=== PATIENT | female | born 1965 | race Caucasian/White ===

== ENCOUNTER 2017-05-31 19:57 | Emergency (ER) | payer MEDICARE | END 2017-05-31 21:00 | disposition home or self-care (01) | LOC: D.ER 19:57 | DX: S61.212A Laceration without foreign body of right middle finger without damage to nail, initial encounter (principal); W26.0XXA Contact with knife, initial encounter; Y93.G3 Activity, cooking and baking; Y92.010 Kitchen of single-family (private) house as the place of occurrence of the external cause; M32.9 Systemic lupus erythematosus, unspecified ==

== ENCOUNTER 2018-08-26 07:29 | Observation (INO) | payer OTHER ==
[~2018-08-26] VITALS: Ht 162.6 cm; Wt 59.1 kg
--- NOTE | ~2018-08-26 | MORECARE ---
CASE MANAGEMENT DISCHARGE SUMMARY PATIENT: AMBER HUERTA FE UNIT: [id number] ADM DATE: 08/26/18 AGE: 53 : 61 SEX: F ROOM/BED: D.E14 AUTHOR: NANO,DOC PHYSICIAN: REFERRING PHYSICIAN: LIYAH BEVERLY MD DATE OF SERVICE: 09/06/18 Discharge Plan Patient Name: AMBER HUERTA Facility: [facility]:[place] : 1965 Planned Disposition: Home Anticipated Discharge Date: 08/28/18 Discharge Date: 08/26/2018 Expected LOS: 2 Initial Reviewer: [email or web address] Initial Review Date: 08/26/2018 Generated: 09/06/18 3:16 pm DCP- Discharge Planning Updated by [email or web address]: Coco Roy on 08/26/18 12:[address] Patient Name: AMBER HUERTA Admission Status: ER Accout number: [id number] Admission Date: 08-26-2018 : 1965 Admission Diagnosis: Attending: LIYAH BEVERLY Current LOS: 1 Anticipated DC Date: 08-28-2018 Planned Disposition: Home Primary Insurance: [employer] Discharge Planning Comments: CM met with patient to complete initial dc planning assessment. CM educated patient on the CM role and verbal consent given by patient to complete assessment. Patient lives at home alone independently. At discharge patient plans to return home alone and feels this is a safe discharge. Patient reports she has a glucometer but does not check her sugar very often. Patient denied known discharge needs at this time. CM will continue to follow and will assist as needed with dc plans/needs. See below for more assessment information. Bumboater: Coco Roy RN, [facility] DCPIA - Discharge Planning Initial Assessment Updated by [email or web address]: Coco Roy on 08/26/18 11:55 am * Is the patient Alert and Oriented? Yes * How many steps to enter\exit or inside your home? None * PCP Dr. JANSEN - has appointment but has not seen in office yet. * [facility]acy [facility] or [facility] * Preadmission Environment Home Alone * ADLs Independent * Equipment Glucometer * Other Equipment Does not check her sugar as she is supposed to. * List name and contact numbers for known caregivers / representatives who currently or will assist patient after discharge: Thea esposito - [phone] * Verbal permission to speak to the caregivers and representatives has been obtained from the patient. Yes * Community resources currently utilized None * Additional services required to return to the preadmission environment? No * Can the patient safely return to the preadmission environment? Yes * Has this patient been hospitalized within the prior 30 days at any hospital? No Last DP export: 08/26/18 12:19 p Patient Name: AMBER HUERTA Page 31434 at 1416 All edits/amendments must be made on the electronic document DICTATION DATE: 09/06/181414 DIRECTOR OF SPECIAL SERVICES: DIANA 09/06/181414 RPT#: [id number] DC DATE:08/26/18 STATUS: DIS IN [facility] [address] [place] [address] END OF REPORT
--- NOTE | ~2018-08-26 | MORECARE ---
CASE MANAGEMENT DISCHARGE SUMMARY PATIENT: AMBER HUERTA FE UNIT: [id number] ADM DATE: 08/26/18 AGE: 53 : 61 SEX: F ROOM/BED: D.E14 AUTHOR: NISHANT MCGILL PHYSICIAN: REFERRING PHYSICIAN: LIYAH BEVERLY MD DATE OF SERVICE: 08/26/18 Discharge Plan Patient Name: AMBER HUERTA [facility] [facility] 1965 Planned Disposition: Home Anticipated Discharge Date: 08/28/18 Discharge Date: Expected LOS: 2 Initial Reviewer: [email or web address] Initial Review Date: 08/26/2018 Generated: 08/26/18 1:00 pm DCPIA - Discharge Planning Initial Assessment Updated by [email or web address]: Coco Roy on 08/26/18 11:55 am * Is the patient Alert and Oriented? Yes * How many steps to enter\exit or inside your home? None * PCP Dr. JANSEN - has appointment but has not seen in office yet. * Pharmacy [facility] the [facility] or [facility] * Preadmission Environment Home Alone * ADLs Independent * Equipment Glucometer * Other Equipment Does not check her sugar as she is supposed to. * List name and contact numbers for known caregivers / representatives who currently or will assist patient after discharge: Thea Winter vaibhav - [phone] * Verbal permission to speak to the caregivers and representatives has been obtained from the patient. Yes * Community resources currently utilized None * Additional services required to return to the preadmission environment? No * Can the patient safely return to the preadmission environment? Yes * Has this patient been hospitalized within the prior 30 days at any hospital? No Patient Name: AMBER HUERTA Page 27655 at 1201 All edits/amendments must be made on the electronic document DICTATION DATE: 08/26/18 1200 AIRLINE MANAGER: DIANA 08/26/18 1200 RPT#: [id number] DC DATE: STATUS: ADM IN [facility] [address] [place] [address] END OF REPORT
--- NOTE | ~2018-08-26 | MORECARE ---
CASE MANAGEMENT DISCHARGE SUMMARY PATIENT: AMBER HUERTA FE UNIT: [id number] ADM DATE: 08/26/18 AGE: 53 : 61 SEX: F ROOM/BED: D.E14 AUTHOR: NANO,DOC PHYSICIAN: REFERRING PHYSICIAN: LIYAH BEVERLY MD DATE OF SERVICE: 08/26/18 Discharge Plan Patient Name: AMBER HUERTA Facility: [facility]:[place] : 1965 Planned Disposition: Home Anticipated Discharge Date: 08/28/18 Discharge Date: Expected LOS: 2 Initial Reviewer: [email or web address] Initial Review Date: 08/26/2018 Generated: 08/26/18 1:19 pm DCP- Discharge Planning Updated by [email or web address]: Coco Roy on 08/26/18 11:[address] Patient Name: AMBER HUERTA Admission Status: ER Accout number: [id number] Admission Date: 08-26-2018 : 1965 Admission Diagnosis: Attending: LIYAH BEVERLY Current LOS: 1 Anticipated DC Date: 08-28-2018 Planned Disposition: Home Primary Insurance: [employer] Discharge Planning Comments: CM met with patient to complete initial dc planning assessment. CM educated patient on the CM role and verbal consent given by patient to complete assessment. Patient lives at home alone independently. At discharge patient plans to return home alone and feels this is a safe discharge. Patient reports she has a glucometer but does not check her sugar very often. Patient denied known discharge needs at this time. CM will continue to follow and will assist as needed with dc plans/needs. See below for more assessment information. Freight Booker: Coco Roy RN, [facility] DCPIA - Discharge Planning Initial Assessment Updated by [email or web address]: Coco Roy on 08/26/18 11:55 am * Is the patient Alert and Oriented? Yes * How many steps to enter\exit or inside your home? None * PCP Dr. JANSEN - has appointment but has not seen in office yet. * Pharmacy [facility] the [facility] or [facility] * Preadmission Environment Home Alone * ADLs Independent * Equipment Glucometer * Other Equipment Does not check her sugar as she is supposed to. * List name and contact numbers for known caregivers / representatives who currently or will assist patient after discharge: Thea Chapel Rea esposito - [phone] * Verbal permission to speak to the caregivers and representatives has been obtained from the patient. Yes * Community resources currently utilized None * Additional services required to return to the preadmission environment? No * Can the patient safely return to the preadmission environment? Yes * Has this patient been hospitalized within the prior 30 days at any hospital? No Last DP export: 08/26/18 11:00 a Patient Name: AMBER HUERTA Page 64770 at 1219 All edits/amendments must be made on the electronic document DICTATION DATE: 08/26/181217 BENEFITS REPRESENTATIVE: DIANA 08/26/181217 RPT#: [id number] DC DATE: STATUS: ADM IN [facility] [address] [place] [address] END OF REPORT
[2018-08-26 07:36] VITALS: Ht 162.6 cm; Wt 59.1 kg
[2018-08-26 09:27] LABS: BASOPHILS 0.2 % (0-2); EOSINOPHILS 0.5 % (0-7); HEMATOCRIT 37.1 % (36.0-48.0); HEMOGLOBIN 13.3 g/dL (12-16); IMMATURE GRANULOCYTES 0.3 % (0-5); LYMPHOCYTES 17.4 % (15-50); MCH 33.6 pg (26.0-34.0); MCHC 35.8 g/dL (31.0-37.0); MCV 93.7 fL (80.0-100.0); MEAN PLATELET VOLUME 11.6 fL (7.4-10.4); MONOCYTES 9.1 % (2-11); NEUTROPHILS 72.5 % (40-80); PLATELET COUNT 235 10x3/uL (130-400); RBC 3.96 10x6/uL (4.00-5.40); RDW 11.9 % (11.5-14.5); WBC 17.6 10x3/uL (4.8-10.8)
[2018-08-26 09:42] LABS: ALBUMIN 3.1 g/dL (3.4-5.0); ALKALINE PHOSPHATASE 81 U/L (46-116); ALT (SGPT) 38 U/L (10-68); BILIRUBIN - TOTAL 0.71 mg/dL (0.2-1.3); CALC OSMOLALITY 271 mosm/kg (275-300); CALCIUM 8.5 mg/dL (8.5-10.1); CARBON DIOXIDE 21.6 mmol/L (21.0-32.0); CHLORIDE - SERUM 99 mmol/L (98-107); CREATININE - SERUM 0.6 mg/dL (0.6-1.3); GLUCOSE 219 mg/dL (74-106); POTASSIUM - SERUM 3.6 mmol/L (3.5-5.1); PROTEIN - SERUM 7.2 g/dL (6.4-8.2); SODIUM 133 mmol/L (136-145); UREA NITROGEN 9 mg/dL (7-18); eGFR NON AFRICAN AMERICAN > 90 mL/min (90-120)
[2018-08-26 10:18] LABS: APPEARANCE CLEAR (CLEAR); BILIRUBIN NEGATIVE (NEGATIVE); COLOR YELLOW (YELLOW); GLUCOSE 250 mg/dL (NEGATIVE); KETONE MODERATE mg/dL (NEGATIVE); NITRITE NEGATIVE (NEGATIVE); PROTEIN TRACE mg/dL (NEGATIVE); SPECIFIC GRAVITY 1.015 (1.005-1.020)
[2018-08-26 10:21] LABS: BACTERIA FEW /hpf (NONE SEEN); EPITHELIAL CELLS 0-5 /hpf (0-5); MUCUS >1+ /lpf (NONE SEEN); RED CELLS - URINE 0-5 /hpf (0-5); WHITE CELLS - URINE 0-5 /hpf (0-5)
[2018-08-26 11:48] VITALS: BP 123/82
[2018-08-27] MEDS ORDERED: NORCO 7.5/325 T1 TA1 PO (20:35)
[2018-08-27] MEDS ORDERED: VENTOLIN HFA18 GM INH (20:35)
[2018-08-27] MEDS ORDERED: LEVAQUIN750 MG PO (20:35)
== END 2018-08-26 13:32 | disposition home or self-care (01) ==
LOC: D.ER 07:29 → D.EDHOLD 10:36 → D.ER 10:36 → D.EDHOLD 10:36 → OBSVTIME 10:36 → D.EDHOLD 13:32
PROVIDERS: Family Medicine
DX: N39.0 Urinary tract infection, site not specified (principal); J18.9 Pneumonia, unspecified organism; F17.210 Nicotine dependence, cigarettes, uncomplicated; J01.90 Acute sinusitis, unspecified

== ENCOUNTER 2018-08-27 18:44 | Emergency (ER) | payer OTHER ==
[~2018-08-27] VITALS: Ht 162.6 cm; Wt 61.2 kg
[2018-08-27 19:19] VITALS: Ht 162.6 cm; Wt 61.2 kg
[2018-08-27] MEDS ORDERED: LEVAQUIN750 MG PO (20:35)
[2018-08-27] MEDS ORDERED: VENTOLIN HFA18 GM INH (20:35)
[2018-08-27] MEDS ORDERED: NORCO 7.5/325 T1 TA1 PO (20:35)
[2018-08-27 21:06] VITALS: BP 144/76
== END 2018-08-27 21:06 | disposition home or self-care (01) ==
LOC: D.ER 18:44
DX: J18.9 Pneumonia, unspecified organism (principal); J45.909 Unspecified asthma, uncomplicated; R09.89 Other specified symptoms and signs involving the circulatory and respiratory systems; F17.200 Nicotine dependence, unspecified, uncomplicated

== ENCOUNTER 2021-03-31 14:04 | Inpatient (IN) | payer MEDICARE ==
[~2021-03-31] VITALS: Ht 162.6 cm; Wt 54.4 kg
[~2021-03-31 14:04] MED LIST: LEVAQUIN750 MG PO; NORCO 7.5/325 T1 TA1 PO; VENTOLIN HFA18 GM INH
[2021-03-31 14:51] LABS: BILIRUBIN NEGATIVE (NEGATIVE); KETONE NEGATIVE (NEGATIVE); NITRITE NEGATIVE (NEGATIVE); UROBILINOGEN NORMAL mg/dL (< 2)
--- NOTE | 2021-03-31 15:03 | NUR ---
CALLED CARE, SPOKE WITH CECILIA BENTLEY. INFORMED OF NEED FOR MH SCREENING/ASSESSMENT
[2021-03-31 15:04] LABS: UDS - AMPHET POSITIVE QUAL (NEGATIVE); UDS - BARB NEGATIVE QUAL (NEGATIVE); UDS - BENZO NEGATIVE QUAL (NEGATIVE); UDS - COCAINE NEGATIVE QUAL (NEGATIVE); UDS - OPIATE NEGATIVE QUAL (NEGATIVE); UDS - PCP NEGATIVE QUAL (NEGATIVE); UDS - THC POSITIVE QUAL (NEGATIVE)
[2021-03-31 15:15] LABS: BASOPHILS 0.9 % (0-2); HEMATOCRIT 40.7 % (36.0-48.0); HEMOGLOBIN 13.7 g/dL (12-16); LYMPHOCYTES 30.6 % (15-50); MCH 32.3 pg (26.0-34.0); MCHC 33.7 g/dL (31.0-37.0); MCV 95.9 fL (80.0-100.0); MEAN PLATELET VOLUME 8.1 fL (7.4-10.4); MONOCYTES 6.9 % (2-11); NEUTROPHILS 59.6 % (40-80); RBC 4.25 10x6/uL (4.00-5.40); RDW 12.3 % (11.5-14.5); WBC 10.6 10x3/uL (4.8-10.8)
[2021-03-31 15:26] LABS: APTT 25.3 SECONDS (22.8-39.4); INR 1.08 (0.85-1.17)
[2021-03-31 15:30] LABS: PLATELET COUNT 372 10x3/uL (130-400)
[2021-03-31 15:34] LABS: CALC OSMOLALITY 282 mosm/kg (275-300); CALCIUM 8.7 mg/dL (8.5-10.1); CARBON DIOXIDE 26.7 mmol/L (21.0-32.0); CHLORIDE - SERUM 104 mmol/L (98-107); CREATININE - SERUM 0.7 mg/dL (0.6-1.3); GLUCOSE 186 mg/dL (74-106); POTASSIUM - SERUM 3.9 mmol/L (3.5-5.1); SODIUM 140 mmol/L (136-145); UREA NITROGEN 9 mg/dL (7-18); eGFR NON AFRICAN AMERICAN > 90 mL/min (90-120)
[2021-03-31 15:47] LABS: ALBUMIN 3.4 g/dL (3.4-5.0); ALKALINE PHOSPHATASE 105 U/L (30-120); ALT (SGPT) 44 U/L (10-68); BILIRUBIN - TOTAL 0.22 mg/dL (0.2-1.3); CKMB 1.8 U/L (0.0-3.6); CREATINE KINASE 110 UL (21-215); MAGNESIUM - SERUM 2.1 mg/dL (1.8-2.4); PROTEIN - SERUM 7.4 g/dL (6.4-8.2)
[2021-03-31 15:50] LABS: TROPONIN-I < 0.017 ng/mL (0.000-0.060)
--- NOTE | 2021-03-31 16:05 | NUR ---
Per observation and assessment, Patient scores a low risk score for suicide. She says she was more self harming by cutting her wrist that actually killing herself. She present s to ED with a " sarabjit bite" and then after 15 minutes she states "that's not a sarabjit bite,,,I need to tell you...it's missing drug". Spoke with Dr. Margarito espinosa charge nurse and to Dr. Malin and patient needs inpt. or outpt therapy, counseling, and medication adjustments. She states she is "not suicidal".Resources for suicide and for hot line given to patient and she states "thank you".
[2021-03-31 21:23] VITALS: BP 152/86
--- NOTE | 2021-03-31 21:43 | NUR ---
NS 1000CC STARTED 2006 FINISHED 2106. 1000CC INFUSED.
[2021-03-31] MEDS ORDERED: COREG6.25 MG PO (22:16)
[2021-03-31] MEDS ORDERED: PLAVIX75 MG PO (22:16)
[2021-03-31] MEDS ORDERED: ASPIRIN81 MG PO (22:16)
[2021-03-31] MEDS ORDERED: GLUCOPHAGE1000 MG PO (22:16)
[2021-03-31 23:21] VITALS: BP 157/87; BMI 20.6
--- NOTE | 2021-04-01 07:00 | NUR ---
MORNING ROUNDS. IN BED WITH EYES CLOSED, BREATHING EVEN AND NON LABORED. NO S/S OF DISTRESS NOTED AT THIS TIME. BED IN LOWEST POSITION, BED RAILS X2, CALL LIGHT WITHIN REACH. WILL CONTINUE POC.
[2021-04-01 08:00] VITALS: BP 134/78
--- NOTE | 2021-04-01 08:21 | NUR ---
AT LEAST 5 FAILED ATTEMPTS TO START IV ON PATIENT. WILL NOTIFY SURGERY.
[2021-04-01 09:19] LABS: BASOPHILS 0.6 % (0-2); EOSINOPHILS 1.8 % (0-7); HEMATOCRIT 40.2 % (36.0-48.0); HEMOGLOBIN 13.2 g/dL (12-16); LYMPHOCYTES 25.7 % (15-50); MCH 31.4 pg (26.0-34.0); MCHC 32.8 g/dL (31.0-37.0); MCV 95.6 fL (80.0-100.0); MONOCYTES 5.9 % (2-11); PLATELET COUNT 257 10x3/uL (130-400); RDW 12.3 % (11.5-14.5); WBC 12.8 10x3/uL (4.8-10.8)
--- NOTE | 2021-04-01 09:32 | NUR ---
AAOX4 UPON ENTERING. VISITOR AT BEDSIDE. ADMINSITERED IM B1 AND LIBRIUM. RESTING COMFORTABLY. DENIES ANY NEEDS AT THIS TIME. WILL CONITNUE POC.
[2021-04-01 09:38] LABS: ALBUMIN 3.2 g/dL (3.4-5.0); ALKALINE PHOSPHATASE 97 U/L (30-120); ALT (SGPT) 41 U/L (10-68); BILIRUBIN - TOTAL 0.38 mg/dL (0.2-1.3); CALC OSMOLALITY 276 mosm/kg (275-300); CALCIUM 8.2 mg/dL (8.5-10.1); CARBON DIOXIDE 27.3 mmol/L (21.0-32.0); CHLORIDE - SERUM 103 mmol/L (98-107); CREATININE - SERUM 0.6 mg/dL (0.6-1.3); GLUCOSE 151 mg/dL (74-106); MAGNESIUM - SERUM 2.1 mg/dL (1.8-2.4); POTASSIUM - SERUM 4.5 mmol/L (3.5-5.1); PROTEIN - SERUM 6.7 g/dL (6.4-8.2); SODIUM 138 mmol/L (136-145); UREA NITROGEN 8 mg/dL (7-18); eGFR NON AFRICAN AMERICAN > 90 mL/min (90-120)
--- NOTE | 2021-04-01 10:24 | NUR ---
DAUGHTER IN ROOM, COMPLAINING ABOUT MULTIPLE STICKS FOR BLOOD DRAW THIS MORNING. MESSAGE SENT TO ABOUT MULTIPLE UNSUCESSFUL IV ATTEMPTS.
[2021-04-01 11:01] LABS: INR 1.14 (0.85-1.17); PROTIME 13.5 SECONDS (11.6-15.0)
[2021-04-01 12:11] VITALS: BP 136/80
--- NOTE | 2021-04-01 12:21 | NUR ---
REQUESTING PAIN MEDICATION, EXPLAINED SHE IS NPO SO NO PO MEDS AND HAS NO IV ACCESS AND WILL NOT ALLOW US TO KEEP TRYING SO SHE IS UNABLE TO HAVE MEDICATION AT THIS TIME. VERBALIZES UNDERSTANDING.
--- NOTE | 2021-04-01 13:50 | NUR ---
PRN MORPHINE FOR 9/10 PAIN. ANESTHESIA IN ROOM ASKING QUESTIONS, GETTING READY FOR I&D. DENIES FURTHER NEEDS. WILL CONTINUE POC.
--- NOTE | 2021-04-01 14:51 | NUR ---
I have reviewed this patient and I concur with the Shift Assessment completed by the Licensed Practical Nurse today this shift.
[2021-04-01 15:32] VITALS: BP 134/77
[2021-04-01 15:34] VITALS: Ht 162.6 cm; Wt 54.4 kg
--- NOTE | 2021-04-01 15:59 | NUR ---
ADMINISTERED PRE-OP MEDICATION AT THIS TIME. TOLERATED WELL. STARTED IV ABX. RESTING COMFORTABLY IN BED. FAMILY AT BEDSIDE. DENIES ANY NEEDS AT THIS TIME. BED IN LOWEST POSITION, BED RAILS X2, CALL LIGHT WITHIN REACH. WILL CONTINUE POC.
--- NOTE | 2021-04-01 17:20 | NUR ---
HUNG IV ABX, TOLERATING WELL. RESTING WITH EYES CLOSED. NO S/S OF DISTRESS NOTED AT THIS TIME. WILL CONTINUE POC.
[2021-04-01 20:00] VITALS: BP 135/81
--- NOTE | 2021-04-01 20:22 | NUR ---
PATIENT'S OTHER DAUGHTER AMBER BLEVINS' PHONE NUMBER [phone].
[2021-04-02] VITALS: BP 128/75
[2021-04-02 04:00] VITALS: BP 131/80
[2021-04-02 06:32] LABS: BASOPHILS 1.1 % (0-2); EOSINOPHILS 2.9 % (0-7); HEMATOCRIT 37.2 % (36.0-48.0); HEMOGLOBIN 12.4 g/dL (12-16); MCH 31.6 pg (26.0-34.0); MCHC 33.3 g/dL (31.0-37.0); MCV 94.7 fL (80.0-100.0); MEAN PLATELET VOLUME 7.7 fL (7.4-10.4); MONOCYTES 5.9 % (2-11); NEUTROPHILS 59.1 % (40-80); RBC 3.93 10x6/uL (4.00-5.40); RDW 12.2 % (11.5-14.5)
[2021-04-02 06:48] LABS: PLATELET COUNT 335 10x3/uL (130-400)
[2021-04-02 06:50] LABS: ALBUMIN 2.6 g/dL (3.4-5.0); ALKALINE PHOSPHATASE 83 U/L (30-120); ALT (SGPT) 37 U/L (10-68); BILIRUBIN - TOTAL 0.31 mg/dL (0.2-1.3); CALC OSMOLALITY 281 mosm/kg (275-300); CALCIUM 7.9 mg/dL (8.5-10.1); CARBON DIOXIDE 28.9 mmol/L (21.0-32.0); CHLORIDE - SERUM 105 mmol/L (98-107); CREATININE - SERUM 0.8 mg/dL (0.6-1.3); GLUCOSE 133 mg/dL (74-106); MAGNESIUM - SERUM 2.2 mg/dL (1.8-2.4); POTASSIUM - SERUM 4.5 mmol/L (3.5-5.1); PROTEIN - SERUM 6.2 g/dL (6.4-8.2); SODIUM 140 mmol/L (136-145); UREA NITROGEN 15 mg/dL (7-18); eGFR NON AFRICAN AMERICAN 78 mL/min (90-120)
[2021-04-02 08:45] VITALS: BP 162/98
[2021-04-02 12:00] VITALS: BP 122/59
--- NOTE | 2021-04-02 12:49 | NUR ---
PRN PAIN MEDS AND ANXIETY MEDS GIVEN AT THIS TIME
--- NOTE | 2021-04-02 13:52 | NUR ---
WOUND CARE PROVIDED TO PATIENT'S LEFT ARM AT THIS TIME, COVERED WITH GAUZE AND WRAPPED WITH DILIP WRAP.
--- NOTE | 2021-04-02 15:10 | NUR ---
NURSE GIVES PATIENT PRN ATIVAN AND SCHEDULED LIBRIUM. PATIENT IS CRYING WHILE SITTING UP IN BED, TELLS NURSE/ MD SHE FEELS LIKE SHE IS HAVING WITHDRAWLS. MD CHANGES ORDER FREQUENCY FOR ATIVAN.
--- NOTE | 2021-04-02 15:23 | NUR ---
NURSE PLACES PATIENT ON TELE. PATIENT IS RELAXED NOW, AND SLEEPING PEACEFULLY IN BED. NAD NOTED.
[2021-04-02 20:00] VITALS: BP 123/72
[2021-04-03 04:00] VITALS: BP 124/70
[2021-04-03 06:15] LABS: BASOPHILS 0.8 % (0-2); EOSINOPHILS 3.4 % (0-7); HEMATOCRIT 34.1 % (36.0-48.0); HEMOGLOBIN 11.5 g/dL (12-16); LYMPHOCYTES 28.4 % (15-50); MCH 31.8 pg (26.0-34.0); MCHC 33.7 g/dL (31.0-37.0); MCV 94.4 fL (80.0-100.0); MEAN PLATELET VOLUME 8.1 fL (7.4-10.4); MONOCYTES 7.2 % (2-11); NEUTROPHILS 60.2 % (40-80); PLATELET COUNT 299 10x3/uL (130-400); RBC 3.61 10x6/uL (4.00-5.40); RDW 12.2 % (11.5-14.5)
[2021-04-03 06:19] LABS: INR 1.04 (0.85-1.17); PROTIME 12.6 SECONDS (11.6-15.0)
[2021-04-03 06:49] LABS: ALBUMIN 2.5 g/dL (3.4-5.0); ALKALINE PHOSPHATASE 80 U/L (30-120); ALT (SGPT) 36 U/L (10-68); CALC OSMOLALITY 282 mosm/kg (275-300); CARBON DIOXIDE 27.7 mmol/L (21.0-32.0); CHLORIDE - SERUM 106 mmol/L (98-107); CREATININE - SERUM 0.8 mg/dL (0.6-1.3); GLUCOSE 195 mg/dL (74-106); MAGNESIUM - SERUM 2.1 mg/dL (1.8-2.4); POTASSIUM - SERUM 4.4 mmol/L (3.5-5.1); SODIUM 139 mmol/L (136-145); UREA NITROGEN 13 mg/dL (7-18); VANCOMYCIN - TROUGH 25.9 ug/mL (10.0-20.0); eGFR NON AFRICAN AMERICAN 78 mL/min (90-120)
[2021-04-03 08:57] VITALS: BP 158/80
[2021-04-03 12:22] VITALS: BP 129/78
--- NOTE | 2021-04-03 14:21 | NUR ---
I have reviewed this patient and I concur with the Shift Assessment completed by the Licensed Practical Nurse today this shift.
--- NOTE | 2021-04-03 14:45 | NUR ---
LAB ATTEMPTING TO DRAW VANC TROUGH, UNABLE TO OBTAIN LABS, PATIENT WAS STUCK NUMEROUS TIMES AND UNSUCCESSFUL EACH TIME, PATIENT FAMILY THEN SAID TO STOP NO MORE STICKING PATIENT. UNABLE TO OBTAIN VANC TROUGH WILL CONTACT DOCTOR
[2021-04-03 17:08] VITALS: BP 139/76
--- NOTE | 2021-04-03 19:30 | NUR ---
PT IN BED, EYES CLOSED, RESP EVEN AND UNLABORED, NO DISTRESS NOTED, CL IN REACH, SR UP X 2.
[2021-04-03 20:00] VITALS: BP 133/69
--- NOTE | 2021-04-03 21:58 | NUR ---
PT REFUSING MEDICATION PT WANTING TO GO SMOKE, PT TOLD THIS IS A SMOKE FREE CAMPUS, PT FRIEND IN ROOM, PT COMBATIVE TO PT FRIEND, PT INSISTANT ON GOING TO SMOKE OR GOING AMA. PT GIVEN 2 MG ATIVAN PER ORDER AT THIS TIME.
--- NOTE | 2021-04-03 22:32 | NUR ---
DR. MANCINI NOTIFIED AND SITTER ORDERED. SITTER AT BEDSIDE. NOTIFIED CHARGE NURSE AND ATTENDING IN REGARDS TO ASSESSMENT FINDINGS. RESOURCES GIVEN TO PT AND SAFETY PLAN INITIATED.
--- NOTE | 2021-04-03 22:47 | NUR ---
PTS BAG WENT THROUGH PER SECURITY, PT BELONGINGS TAKEN HOME PER KARISSA BUSBY AT THIS TIME, PT EVALUATED PER SUICIDE SCREEN, PT HAS MENTAL HEALTH TECH AT DOOR FOR SUICIDE WATCH. DR MANCINI CONSULTED AT THIS TIME.
[2021-04-04 03:53] VITALS: BP 154/79
--- NOTE | 2021-04-04 05:11 | NUR ---
I have reviewed this patient and I concur with the Shift Assessment completed by the Licensed Practical Nurse today this shift.
[2021-04-04 06:16] LABS: INR 1.07 (0.85-1.17); PROTIME 12.9 SECONDS (11.6-15.0)
[2021-04-04 06:18] LABS: EOSINOPHILS 3.3 % (0-7); HEMATOCRIT 35.2 % (36.0-48.0); HEMOGLOBIN 11.8 g/dL (12-16); LYMPHOCYTES 27.9 % (15-50); MCH 31.9 pg (26.0-34.0); MCHC 33.7 g/dL (31.0-37.0); MCV 94.7 fL (80.0-100.0); MEAN PLATELET VOLUME 8.6 fL (7.4-10.4); MONOCYTES 5.6 % (2-11); NEUTROPHILS 62.2 % (40-80); PLATELET COUNT 269 10x3/uL (130-400); RBC 3.71 10x6/uL (4.00-5.40); RDW 12.1 % (11.5-14.5); WBC 8.5 10x3/uL (4.8-10.8)
[2021-04-04 06:24] LABS: ALBUMIN 2.6 g/dL (3.4-5.0); ALKALINE PHOSPHATASE 73 U/L (30-120); ALT (SGPT) 44 U/L (10-68); BILIRUBIN - TOTAL 0.25 mg/dL (0.2-1.3); CALCIUM 8.1 mg/dL (8.5-10.1); CHLORIDE - SERUM 108 mmol/L (98-107); CREATININE - SERUM 0.6 mg/dL (0.6-1.3); MAGNESIUM - SERUM 2.1 mg/dL (1.8-2.4); POTASSIUM - SERUM 3.9 mmol/L (3.5-5.1); PROTEIN - SERUM 6.2 g/dL (6.4-8.2); SODIUM 142 mmol/L (136-145); UREA NITROGEN 11 mg/dL (7-18); VANCOMYCIN - TROUGH 13.8 ug/mL (10.0-20.0); eGFR NON AFRICAN AMERICAN > 90 mL/min (90-120)
[2021-04-04 06:25] LABS: CALC OSMOLALITY 283 mosm/kg (275-300); GLUCOSE 134 mg/dL (74-106)
[2021-04-04 10:13] VITALS: BP 148/88
[2021-04-04 13:10] VITALS: BP 146/87
--- NOTE | 2021-04-04 13:47 | NUR ---
unable to do [place] suicide assessment due to pt refusing to wake up and answer questions. sitter at bedside for suicide risk.
--- NOTE | 2021-04-04 15:50 | MORECARE ---
CASE MANAGEMENT DISCHARGE SUMMARY PATIENT: AMBER HUERTA UNIT: [id number] ADM DATE: 03/31/21 AGE: 55 : 61 SEX: F ROOM/BED: D.2236 AUTHOR: NANO,DOC PHYSICIAN: REFERRING PHYSICIAN: JOSIANE ARGUETA MD DATE OF SERVICE: 04/04/21 Case Management Discharge Planning Summary COMMENTS ENTERED DATE: 04/04/21 15:42 CT COMMENT TYPE: Discharge Planning REVIEWER: Sheryl Bañuelos CM MET WITH PATIENT AND HER DAUGHTER TYRONE TODAY. THEY WOULD LIKE ALCOHOL REHAB FOR HER. I HAVE CALLED [facility] IN [place] AND THEY STATED PATIENT WOULD HAVE TO BE MEDICALLY STABLE BEFORE THEY WOULD CONSIDER TAKING HER. THEY TRANSFERRED ME TO THEIR PSYCH ADMITS DEPARTMENT AND SHE STATES THEY WOULDN'T EVEN LOOK AT HER RECORDS UNTIL SHE IS MEDICALLY STABLE. I GAVE THE DAUGHTER A LIST OF ALCOHOL REHABS IN [place] AND THEY CAN GET STARTED ON GETTING HER INTO A REHAB FACILITY [facility] SHE IS MEDICALLY STABLE. CM TO FOLLOW AND ASSIST NEEDED. I PLAN TO CONTACT [facility] TOMORROW. DCP REVIEW SUMMARY ANTICIPATED D/C DATE: EXPECTED LOS : CASE STATUS: DCP Initiated INITIAL REVIEW: 03/31/2021 INITIAL REVIEWER: Sheryl Bañuelos FINAL DISCHARGE DISPOSITION: : FINAL REVIEWER: FINAL REVIEW DATE: DCP Focus Questions & Answers DCP Screen QUESTION: ANSWER High Risk Factors: : Poor health literacy DCP Evaluation QUESTION: ANSWER Patient's ability to cope with chronic illness : d. No chronic illness Would patient like to participate in any Care Coordination programs (if applicable): : Not applicable Mental health screen: : No mental health history DCP Re-evaluation QUESTION: ANSWER Would patient like to participate in any Care Coordination programs (if applicable): : Not applicable PATIENT: AMBER HUERTA ENCOUNTER: [id number] MEDICAL RECORD#: [id number] ADMISSION DATE: 03/31/2021 DISCHARGE DATE: ATTENDING MD: : AGE: 55 MARITAL STATUS: W DC PLAN ID: [id number] FACILITY: [facility] PRINTED ON: 04/04/21 15:50 CT All edits/amendments must be made on the electronic document DICTATION DATE: 04/04/211549 DIRECTOR OF PHYSICAL SECURITY: DIANA 04/04/211549 RPT#: [id number] DC DATE: STATUS: ADM IN [facility] [address] [facility] [place] [address] END OF REPORT
--- NOTE | 2021-04-04 19:00 | NUR ---
PT VERY AGITATED AT THIS TIME, PT GIVEN 2 MG ATIVAN PER MD ORDER,
--- NOTE | 2021-04-04 19:30 | NUR ---
PT IN BED, EYES CLOSED, RESP EVEN AND UNLABORED, NO DISTRESS NOTED, CL IN REACH, SR UP X 2.
[2021-04-04 20:00] VITALS: BP 132/75
[2021-04-05] VITALS: BP 142/75
--- NOTE | 2021-04-05 04:55 | NUR ---
I have reviewed this patient and I concur with the Shift Assessment completed by the Licensed Practical Nurse today this shift.
--- NOTE | 2021-04-05 05:45 | NUR ---
PIV LOST, ATTEMPTED 8 TIMES TO REPLACE PIV, JOSE CHAVARRIA APN NOTIFED AT THIS TIME. VASCULAR ACCESS CONSULTED.
--- NOTE | 2021-04-05 09:24 | EC ---
PATIENT:AMBER HUERTA DATE OF SERVICE: 03/31/21 SEX: F MEDICAL RECORD: [id number] DATE OF : [birth year] LOCATION:[facility] AGE OF PATIENT: 55 ADMISSION DATE: 03/31/21 REFERRING PHYSICIAN: INTERPRETING PHYSICIAN: JOSIANE CONNELLY MD ECHOCARDIOGRAM REPORT ECHO CHARGES 4 ECHO COMPLETE Date: 04/01/21 CLINICAL DIAGNOSIS: IV DRUG USE ECHOCARDIOGRAPHIC MEASUREMENTS (adult normal given) AC root (d.<3.7cm) 2.9 cm LV Septum d (<1.2 cm> 0.7 cm Valve Excursion 1.3 cm LV Septum (systole) 1.1 cm Left Atria (s.<4.0cm> 3.5 cm LVPW d(<1.2cm) 0.8 cm RV (d.<2.3cm) 2.2 cm LVPW (sytole) 1.3 cm LV diastole(<5.6CM) 5.8 cm MV E-F(>70mm/sec) cm LV systole 4.5 cm LVOT Diameter 1.8 cm MV exc.(>10mm) 0.9 cm Est.ejection fraction (50-75%) % DOPPLER: LVIT cm/sec A 91 cm/sec E 79 cm/sec LA cm/sec RVSP 21 mmHg LVOT 74 cm/sec AOP1/2T m/s Asc. Ao 124 cm/sec RVOT 58 cm/sec RA cm/sec PA 72 cm/sec AV Gradient Peak 6.2 mmHg AV Mean 3.6 mmHg AV Area 1.5 cm MV Gradient Peak 4.7 mmHg MV Mean 2.8 mmHg MV Area cm COMMENTS: Automotive Manager: Grace R[place] Medical Laboratory Technician: 3 Dr. Ward TAPE# Pericardial Effusion N DATE OF SERVICE: Adequate 2D, color flow imaging, spectral Doppler, and M-Mode. FINDINGS: No LVH. LV internal dimension is normal. Wall motion is normal. EF is greater than or equal to 55%. The aortic valve is tricuspid. No evidence of stenosis by Doppler interrogation. Left atrium appears normal. Mitral valve shows no prolapse. Trace MR. Right side is grossly normal. Trace TR. No evidence of endocarditis in all 4 cardiac valves. ECHOCARDIOGRAM REPORT [id number] AMBER HUERTA TRANSINT:[id number] Voice Confirmation ID: [id number] DOCUMENT ID: [id number] JOSIANE CONNELLY MD at 0924 CC: [id number] DICTATION DATE: 04/02/21 1439 MERCHANT BANKER: 04/02/21 1735 ADM IN [facility] [address] [place] [address]
--- NOTE | 2021-04-05 09:56 | NUR ---
PATIENT DENIES SUICIDE IDEATIONS AT THIS TIME. STATED, " I WANT TO GO HOME AND LIVE TO BE A THOUSAND YEARS OLD."
[2021-04-05 11:09] LABS: ALBUMIN 2.9 g/dL (3.4-5.0); ALKALINE PHOSPHATASE 84 U/L (30-120); ALT (SGPT) 52 U/L (10-68); BILIRUBIN - TOTAL 0.35 mg/dL (0.2-1.3); CALCIUM 8.4 mg/dL (8.5-10.1); CARBON DIOXIDE 27.2 mmol/L (21.0-32.0); CHLORIDE - SERUM 105 mmol/L (98-107); POTASSIUM - SERUM 3.8 mmol/L (3.5-5.1); PROTEIN - SERUM 6.8 g/dL (6.4-8.2); SODIUM 142 mmol/L (136-145); UREA NITROGEN 9 mg/dL (7-18); eGFR NON AFRICAN AMERICAN 78 mL/min (90-120)
[2021-04-05 11:10] LABS: CALC OSMOLALITY 289 mosm/kg (275-300); CREATININE - SERUM 0.8 mg/dL (0.6-1.3); GLUCOSE 245 mg/dL (74-106)
[2021-04-05 11:24] LABS: BASOPHILS 0.6 % (0-2); EOSINOPHILS 2.3 % (0-7); HEMATOCRIT 37.8 % (36.0-48.0); HEMOGLOBIN 12.6 g/dL (12-16); LYMPHOCYTES 20.1 % (15-50); MCH 31.9 pg (26.0-34.0); MCHC 33.4 g/dL (31.0-37.0); MCV 95.6 fL (80.0-100.0); MEAN PLATELET VOLUME 8.5 fL (7.4-10.4); MONOCYTES 2.7 % (2-11); NEUTROPHILS 74.3 % (40-80); PLATELET COUNT 298 10x3/uL (130-400); RBC 3.95 10x6/uL (4.00-5.40); RDW 12.2 % (11.5-14.5); WBC 8.8 10x3/uL (4.8-10.8)
[2021-04-05 12:32] LABS: INR 1.23 (0.85-1.17); PROTIME 14.3 SECONDS (11.6-15.0)
[2021-04-05 12:51] VITALS: BP 162/57
--- NOTE | 2021-04-05 13:13 | NUR ---
Nutrition follow-up: Diet order: consistent CHO Pt sleeping at time of RD visit; sitter at door Labs reviewed; glucose under mostly poor control Wt: 120# Will continue to provide food choices with selective menus and honor food preferences within diet restrictions. RDN will reassess pts progress toward nutrition goals in 3-5 days.
--- NOTE | 2021-04-05 14:36 | MORECARE ---
CASE MANAGEMENT DISCHARGE SUMMARY PATIENT: AMBER HUERTA UNIT: [id number] ADM DATE: 03/31/21 AGE: 55 : 61 SEX: F ROOM/BED: D.2236 AUTHOR: NANO,DOC PHYSICIAN: REFERRING PHYSICIAN: JOSIANE ARGUETA MD DATE OF SERVICE: 04/05/21 Case Management Discharge Planning Summary COMMENTS ENTERED DATE: 04/05/21 14:24 CT COMMENT TYPE: Discharge Planning REVIEWER: Sheryl Bañuelos CM CALLED [facility] IN [place] FOR PSYCH PLACEMENT AT [phone]. FAXED TO [phone]. WAITING CALL BACK TODAY IF THEY WILL ACCEPT. ASHANTI VILLAGOMEZ HEAD AUTOMATIC SAWYER WITH PSYCH HERE TO SEE PATIENT. SITTER IS PRESENT. CM TO FOLLOW AND ASSIST NEEDED. ENTERED DATE: 04/04/21 15:42 CT COMMENT TYPE: Discharge Planning REVIEWER: Sheryl Bañuelos CM MET WITH PATIENT AND HER DAUGHTER TYRONE TODAY. THEY WOULD LIKE ALCOHOL REHAB FOR HER. I HAVE CALLED [facility] IN [place] AND THEY STATED PATIENT WOULD HAVE TO BE MEDICALLY STABLE BEFORE THEY WOULD CONSIDER TAKING HER. THEY TRANSFERRED ME TO THEIR PSYCH ADMITS DEPARTMENT AND SHE STATES THEY WOULDN'T EVEN LOOK AT HER RECORDS UNTIL SHE IS MEDICALLY STABLE. I GAVE THE DAUGHTER A LIST OF ALCOHOL REHABS IN [place] AND THEY CAN GET STARTED ON GETTING HER INTO A REHAB FACILITY FO [facility] SHE IS MEDICALLY STABLE. CM TO FOLLOW AND ASSIST NEEDED. I PLAN TO CONTACT [facility] TOMORROW. DCP REVIEW SUMMARY ANTICIPATED D/C DATE: EXPECTED LOS : CASE STATUS: DCP Initiated INITIAL REVIEW: 03/31/2021 INITIAL REVIEWER: Sheryl Bañuelos FINAL DISCHARGE DISPOSITION: : FINAL REVIEWER: FINAL REVIEW DATE: DCP Focus Questions & Answers DCP Screen QUESTION: ANSWER High Risk Factors: : Poor health literacy DCP Evaluation QUESTION: ANSWER Patient's ability to cope with chronic illness : d. No chronic illness Would patient like to participate in any Care Coordination programs (if applicable): : Not applicable Mental health screen: : No mental health history DCP Re-evaluation QUESTION: ANSWER Would patient like to participate in any Care Coordination programs (if applicable): : Not applicable PATIENT: AMBER HUERTA ENCOUNTER: [id number] MEDICAL RECORD#: [id number] ADMISSION DATE: 03/31/2021 DISCHARGE DATE: ATTENDING MD: LUIS E: AGE: 55 MARITAL STATUS: W DC PLAN ID: [id number] FACILITY: [facility] PRINTED ON: 04/05/21 14:36 CT All edits/amendments must be made on the electronic document DICTATION DATE: 04/05/211435 SPORTS BROADCASTER: DIANA 04/05/21 143 RPT#: [id number] DC DATE: STATUS: ADM IN [facility] [address] [place] [address] END OF REPORT
--- NOTE | 2021-04-05 16:52 | NUR ---
AFTER REVIEWING PATIENT'S CASE WITH SUPERVISOR WET END AND TREATMENT TEAM, IT WAS DETERMINED THAT A SITTER WAS NO LONGER NEEDED. IF PATIENT HAS A GOOD NIGHT, PATIENT WILL LIKELY BE DISCHARGED TOMORROW FOR OUTPATIENT THERAPY.
--- NOTE | 2021-04-05 17:01 | NUR ---
AFTER SUICIDAL SCREEN DONE AND COLABORATION WITH FLORES TORO RN AND ASHANTI VILLAGOMEZ APN. ORDER GIVEN FOR DISCONTINUING ONE ON ONE SITTING DUE TO NONE SUICIDAL RISK. RESTING WITH EYES CLOSED WITH RESP EVEN AND UNLABORED
[2021-04-05 17:03] VITALS: BP 105/61
--- NOTE | 2021-04-05 23:45 | NUR ---
ASSESSED AT THE BEGINNING OF THE SHIFT. PT IS ALERT AND ORIENTED, BUT A LITTLE LETHARGIC. SHE HAS BEEN QUIET IN BED SINCE SHIFT'S BEGINNING. MEDS WERE TAKEN ORDERED AND SHE REQUESTED A PAIN PILL FOR HER ARM. 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 SHE HAS NO IV AND HAS CHANGED HER MEDS TO PO. THERE IS NO TELEMETRY BECAUSE SHE HAS REFUSED TO KEEP IT ON FOR THE LAST 2 DAYS.
--- NOTE | 2021-04-06 05:01 | NUR ---
HAS BEEN RESTING QUIET WITH NO DISTRESS OR COMPLAINTS.
[2021-04-06 06:42] LABS: INR 1.07 (0.85-1.17); PROTIME 12.9 SECONDS (11.6-15.0)
[2021-04-06 06:50] LABS: BASOPHILS 0.8 % (0-2); HEMATOCRIT 33.8 % (36.0-48.0); HEMOGLOBIN 11.4 g/dL (12-16); LYMPHOCYTES 34.1 % (15-50); MCH 32.2 pg (26.0-34.0); MCHC 33.8 g/dL (31.0-37.0); MCV 95.2 fL (80.0-100.0); MEAN PLATELET VOLUME 8.5 fL (7.4-10.4); MONOCYTES 9.5 % (2-11); NEUTROPHILS 51.6 % (40-80); PLATELET COUNT 296 10x3/uL (130-400); RBC 3.55 10x6/uL (4.00-5.40); RDW 12.5 % (11.5-14.5); WBC 7.2 10x3/uL (4.8-10.8)
[2021-04-06 07:19] LABS: ALBUMIN 3.3 g/dL (3.4-5.0); ALKALINE PHOSPHATASE 75 U/L (30-120); ALT (SGPT) 45 U/L (10-68); BILIRUBIN - TOTAL 0.19 mg/dL (0.2-1.3); CALCIUM 8.6 mg/dL (8.5-10.1); CARBON DIOXIDE 24.2 mmol/L (21.0-32.0); CHLORIDE - SERUM 107 mmol/L (98-107); CREATININE - SERUM 0.7 mg/dL (0.6-1.3); POTASSIUM - SERUM 4.2 mmol/L (3.5-5.1); PROTEIN - SERUM 6.2 g/dL (6.4-8.2); SODIUM 142 mmol/L (136-145); eGFR NON AFRICAN AMERICAN > 90 mL/min (90-120)
[2021-04-06 07:20] LABS: CALC OSMOLALITY 286 mosm/kg (275-300); GLUCOSE 130 mg/dL (74-106); UREA NITROGEN 18 mg/dL (7-18)
[2021-04-06 09:14] VITALS: BP 121/71
[2021-04-06 13:37] VITALS: BP 147/83
[2021-04-06 17:21] VITALS: BP 131/80
--- NOTE | 2021-04-07 02:28 | NUR ---
I have reviewed this patient and I concur with the Shift Assessment completed by the Licensed Practical Nurse today this shift.
[2021-04-07 07:22] LABS: HEMATOCRIT 38.1 % (36.0-48.0); HEMOGLOBIN 12.6 g/dL (12-16); LYMPHOCYTE ABS# 2.97 10x3/uL (1.18-3.74); MCH 31.5 pg (26.0-34.0); MCHC 33.1 g/dL (31.0-37.0); MCV 95.3 fL (80.0-100.0); NEUTROPHIL ABS# 4.98 10x3/uL (1.56-6.13); PLATELET COUNT 341 10x3/uL (130-400)
[2021-04-07 07:26] LABS: WBC 9.1 10x3/uL (4.8-10.8)
[2021-04-07 07:42] LABS: INR 1.01 (0.85-1.17); PROTIME 12.3 SECONDS (11.6-15.0)
[2021-04-07 07:59] LABS: EOSINOPHILS 1 % (0-7); LYMPHOCYTES 33 % (15-50); NEUTROPHILS 66 % (40-80); PLATELET ESTIMATE NORMAL
[2021-04-07 08:00] LABS: ALBUMIN 3.2 g/dL (3.4-5.0); ALKALINE PHOSPHATASE 95 U/L (30-120); BILIRUBIN - TOTAL 0.25 mg/dL (0.2-1.3); CALC OSMOLALITY 277 mosm/kg (275-300); CALCIUM 8.9 mg/dL (8.5-10.1); CARBON DIOXIDE 27.1 mmol/L (21.0-32.0); CHLORIDE - SERUM 104 mmol/L (98-107); CREATININE - SERUM 0.7 mg/dL (0.6-1.3); GLUCOSE 137 mg/dL (74-106); POTASSIUM - SERUM 4.4 mmol/L (3.5-5.1); PROTEIN - SERUM 7.3 g/dL (6.4-8.2); SODIUM 137 mmol/L (136-145); UREA NITROGEN 19 mg/dL (7-18); eGFR NON AFRICAN AMERICAN > 90 mL/min (90-120)
[2021-04-07 08:01] LABS: ALT (SGPT) 57 U/L (10-68)
--- NOTE | 2021-04-07 09:00 | NUR ---
DRESSING CHANGED TO LEFT FOREARM WITH SANTYL APPLIED AND COVED WITH 4X4 AND SECURED WITH TAPE.
[2021-04-07 09:05] VITALS: BP 132/69
[2021-04-07 12:16] VITALS: BP 108/58
[2021-04-07 12:43] VITALS: BP 105/70
[2021-04-07 18:10] VITALS: BP 145/79
--- NOTE | 2021-04-07 18:20 | NUR ---
PATINET FRIEND HERE WITH PATIENT. PATIENT DENIES ANY PAIN OR DISCOMFORT.
--- NOTE | 2021-04-07 18:30 | NUR ---
PT NOT IN ROOM WAS SEEN IN HALLWAY WITH BAG AND CELL PHONE WITH FRIEND. AUTOMATED PROCESS OPERATOR AND SECURITY NOTIFIED.
--- NOTE | 2021-04-07 18:43 | NUR ---
SECURITY UNABLE TO FIND PATIENT WITH INTERMEDIATE SCHOOL TEACHER AND DAUGHTER NOTIFIED OF PATIENT POSSIBLE LEAVING AMA. INSTRUCTED WOULD CALL IF CAME BACK TO UNIT.
--- NOTE | 2021-04-07 19:00 | MORECARE ---
CASE MANAGEMENT DISCHARGE SUMMARY PATIENT: AMBER HUERTA UNIT: [id number] ADM DATE: 03/31/21 AGE: 55 : 61 SEX: F ROOM/BED: D.2236 AUTHOR: NANO,DOC PHYSICIAN: REFERRING PHYSICIAN: JOSIANE ARGUETA MD DATE OF SERVICE: 04/07/21 Case Management Discharge Planning Summary COMMENTS ENTERED DATE: 04/05/21 14:24 CT COMMENT TYPE: Discharge Planning REVIEWER: Sheryl Bañuelos CM CALLED [facility] IN [place] FOR PSYCH PLACEMENT AT [phone]. FAXED TO [phone]. WAITING CALL BACK TODAY IF THEY WILL ACCEPT. ASHANTI VILLAGOMEZ ELECTRICIAN CRANE MAINTENANCE WITH PSYCH HERE TO SEE PATIENT. SITTER IS PRESENT. CM TO FOLLOW AND ASSIST NEEDED. ENTERED DATE: 04/04/21 15:42 CT COMMENT TYPE: Discharge Planning REVIEWER: Sheryl Bañuelos CM MET WITH PATIENT AND HER DAUGHTER TYRONE TODAY. THEY WOULD LIKE ALCOHOL REHAB FOR HER. I HAVE CALLED [facility] IN [place] AND THEY STATED PATIENT WOULD HAVE TO BE MEDICALLY STABLE BEFORE THEY WOULD CONSIDER TAKING HER. THEY TRANSFERRED ME TO THEIR PSYCH ADMITS DEPARTMENT AND SHE STATES THEY WOULDN'T EVEN LOOK AT HER RECORDS UNTIL SHE IS MEDICALLY STABLE. I GAVE THE DAUGHTER A LIST OF ALCOHOL REHABS IN [place] AND THEY CAN GET STARTED ON GETTING HER INTO A REHAB FACILITY FO [facility] SHE IS MEDICALLY STABLE. CM TO FOLLOW AND ASSIST NEEDED. I PLAN TO CONTACT [facility] TOMORROW. DCP REVIEW SUMMARY ANTICIPATED D/C DATE: EXPECTED LOS : CASE STATUS: DCP Initiated INITIAL REVIEW: 03/31/2021 INITIAL REVIEWER: Sheryl Bañuelos FINAL DISCHARGE DISPOSITION: : FINAL REVIEWER: FINAL REVIEW DATE: DCP Focus Questions & Answers DCP Screen QUESTION: ANSWER High Risk Factors: : Poor health literacy DCP Evaluation QUESTION: ANSWER Patient's ability to cope with chronic illness : d. No chronic illness Would patient like to participate in any Care Coordination programs (if applicable): : Not applicable Mental health screen: : No mental health history DCP Re-evaluation QUESTION: ANSWER Would patient like to participate in any Care Coordination programs (if applicable): : Not applicable PATIENT: AMBER HUERTA ENCOUNTER: [id number] MEDICAL RECORD#: [id number] ADMISSION DATE: 03/31/2021 DISCHARGE DATE: 04/07/2021 ATTENDING MD: LUIS E: 1965-Apr- AGE: 55 MARITAL STATUS: W DC PLAN ID: [id number] FACILITY: [facility] PRINTED ON: 04/07/21 18:59 CT All edits/amendments must be made on the electronic document DICTATION DATE: 04/07/211858 ORDNANCE TRUCK INSTALLATION MECHANIC: DIANA 04/07/211858 RPT#: [id number] DC DATE:04/07/21 STATUS: DIS IN [place] [address] [place] [address] END OF REPORT
--- NOTE | 2021-04-08 14:14 | MORECARE ---
CASE MANAGEMENT DISCHARGE SUMMARY PATIENT: AMBER HUERTA UNIT: [id number] ADM DATE: 03/31/21 AGE: 55 : 61 SEX: F ROOM/BED: D.2236 AUTHOR: NANO,DOC PHYSICIAN: REFERRING PHYSICIAN: JOSIANE ARGUETA MD DATE OF SERVICE: 04/08/21 Case Management Discharge Planning Summary COMMENTS ENTERED DATE: 04/05/21 14:24 CT COMMENT TYPE: Discharge Planning REVIEWER: Sheryl Bañuelos CM CALLED [facility] IN [place] FOR PSYCH PLACEMENT AT [phone]. FAXED TO [phone]. WAITING CALL BACK TODAY IF THEY WILL ACCEPT. ASHANTI VILLAGOMEZ GENERAL HANDLING SUPERVISOR WITH PSYCH HERE TO SEE PATIENT. SITTER IS PRESENT. CM TO FOLLOW AND ASSIST NEEDED. ENTERED DATE: 04/04/21 15:42 CT COMMENT TYPE: Discharge Planning REVIEWER: Sheryl Bañuelos CM MET WITH PATIENT AND HER DAUGHTER TYRONE TODAY. THEY WOULD LIKE ALCOHOL REHAB FOR HER. I HAVE CALLED [facility] IN [place] AND THEY STATED PATIENT WOULD HAVE TO BE MEDICALLY STABLE BEFORE THEY WOULD CONSIDER TAKING HER. THEY TRANSFERRED ME TO THEIR PSYCH ADMITS DEPARTMENT AND SHE STATES THEY WOULDN'T EVEN LOOK AT HER RECORDS UNTIL SHE IS MEDICALLY STABLE. I GAVE THE DAUGHTER A LIST OF ALCOHOL REHABS IN [place] AND THEY CAN GET STARTED ON GETTING HER INTO A REHAB FACILITY FO [facility] SHE IS MEDICALLY STABLE. CM TO FOLLOW AND ASSIST NEEDED. I PLAN TO CONTACT [facility] TOMORROW. DCP REVIEW SUMMARY ANTICIPATED D/C DATE: EXPECTED LOS : CASE STATUS: DCP Initiated INITIAL REVIEW: 03/31/2021 INITIAL REVIEWER: Sheryl Bañuelos FINAL DISCHARGE DISPOSITION: : FINAL REVIEWER: FINAL REVIEW DATE: DCP Focus Questions & Answers DCP Screen QUESTION: ANSWER High Risk Factors: : Poor health literacy DCP Evaluation QUESTION: ANSWER Patient's ability to cope with chronic illness : d. No chronic illness Would patient like to participate in any Care Coordination programs (if applicable): : Not applicable Mental health screen: : No mental health history DCP Re-evaluation QUESTION: ANSWER Would patient like to participate in any Care Coordination programs (if applicable): : Not applicable PATIENT: AMBER HUERTA ENCOUNTER: [id number] MEDICAL RECORD#: [id number] ADMISSION DATE: 03/31/2021 DISCHARGE DATE: 04/07/2021 ATTENDING MD: LUIS E: 1965-Ryan- AGE: 55 MARITAL STATUS: W DC PLAN ID: [id number] FACILITY: [facility] PRINTED ON: 04/08/21 14:14 CT All edits/amendments must be made on the electronic document DICTATION DATE: 04/08/211413 FIBERGLASS TUBE MOLDER: DIANA 04/08/21 141 RPT#: [id number] DC DATE:04/07/21 STATUS: DIS IN [facility] [address] [place] [address] END OF REPORT
--- NOTE | 2021-04-08 15:46 | PN ---
PATIENT:AMBER HUERTA MEDICAL RECORD: [id number] LOCATION:D.[facility] [address] ADMISSION DATE: 03/31/21 PROGRESS NOTE DATE OF SERVICE: 04/04/2021 I have reviewed the assessment and management of this patient that Sophia Nice APRN, has performed. I have discussed the case with her twice today very extensively. I agree with her assessment and management. I am going to taper her Librium slightly since she is sleeping through the day and is not showing evidence of objective alcohol withdrawal. That is to say her blood pressure and heart rate are within reasonable normal limits. The patient subjectively voices a high degree of distress, but this is likely anxiety and alcohol withdrawal. She is still having suicidal thoughts and it is my recommendation that she go to inpatient mental health once medically stabilized. She is certainly in need of substance abuse treatment, which at this point she is willing to accept, but obviously the first order of business would be to address her suicidal thoughts and depression. TRANSINT:[id number] Voice Confirmation ID: [id number] DOCUMENT ID: [id number] ANGIE MANCINI MD at 1546 CC: [id number] DICTATION DATE: 04/04/21 1711 FLOWER MACHINE OPERATOR: 04/04/21 1808 DIS IN 04/07/21 [id number] [place] [address]
== END 2021-04-07 18:57 | disposition left against medical advice (07) | DRG 603 ==
LOC: D.ER 14:04 → D.EDHOLD 14:52 → D.MS 14:52
PROVIDERS: Emergency Medicine; Family Medicine; ADMIT Family Medicine; ATTEND Family Medicine
PROC: 0H9EXZZ Drainage of Left Lower Arm Skin, External Approach (ICD-10-PCS; principal; 2021-04-02)
DX: L02.414 Cutaneous abscess of left upper limb (principal); R45.851 Suicidal ideations; F10.239 Alcohol dependence with withdrawal, unspecified; F33.2 Major depressive disorder, recurrent severe without psychotic features; I10 Essential (primary) hypertension; Z87.01 Personal history of pneumonia (recurrent); F17.210 Nicotine dependence, cigarettes, uncomplicated; Y90.2 Blood alcohol level of 40-59 mg/100 ml; F15.10 Other stimulant abuse, uncomplicated; F12.10 Cannabis abuse, uncomplicated; R73.9 Hyperglycemia, unspecified; L03.114 Cellulitis of left upper limb; B95.62 Methicillin resistant Staphylococcus aureus infection as the cause of diseases classified elsewhere